=== PATIENT | male | born 1945 | race Caucasian/White ===

== ENCOUNTER → 2017-07-06 | Outpatient (CLI) | payer MEDICARE, OTHER ==
[~2017-07-06] MED LIST: ARTHRITIS PAIN650 M3 PO; AVAPRO300 M1 PO; CALCIUM 600 +1 EAC1 PO; COUMADIN5 MG; ELIGARD45 MG IM; HYDROCHLOROTHIA25 MG PO; LIPITOR40 MG PO; MULTI VITAMIN1 EACH PO; OSTEO BI-FLEX1 EAC3 PO; PROLIA60 MG/1 ML SUBQ; SOMNAPURE; VOLTAREN100 GM TOP; [UNRECOGNIZED DRUG - OTHER] IU; [UNRECOGNIZED DRUG - OTHER] MC
--- NOTE | ~2017-07-06 | EKG ---
PATIENT: AIDEE GIRON UNIT #: [id number] Ventricular Rate: 50 BPM Atrial Rate: 50 BPM P-R Interval: 212 ms QRS Duration: 96 ms Q-T Interval: 414 ms QTC Calculation(Bezet): 377 ms P [place]: 57 degrees Calculated R [place]: 4 degrees Calculated T [place]: 6 degrees Diagnosis Line: Sinus bradycardia with 1st degree A-V block Diagnosis Line: Otherwise normal ECG Diagnosis Line: No previous ECGs available Diagnosis Line: Confirmed by LUCA ALMENDAREZ MD ([id number]) on Diagnosis Line: 07/07/2017 9:44:09 AM INTERPRETING MD: TANESHA BIGGS
--- NOTE | ~2017-07-06 | US84 ---
[id number] [facility] [address] [place], [place] [address] [id number] O MR#: [id number] Acc #: [id number] NAME: AIDEE GIRON : 1945 SEX: M STUDY DATE/TIME: 07/06/2017 15:03 UNIT: [facility] ROOM: STUDY DESCRIPTION: US LE Veins Complete Lul Stdy Attending Physician: Carlyle Mejia M.D. Referring Physician: Carlyle Mejia M.D. Ordering Physician: Carlyle Mejia M.D. Primary Care Physician: Emerson Parks M.D. MEDICAL IMAGING REPORT This report is preliminary unless electronic signature is present EXAMINATION Bilateral lower extremity Doppler venous ultrasound. DATE 07/06/2017 HISTORY Previous history of bilateral extremity DVT in 2000. Preoperative evaluation of the left lower extremity surgery scheduled July 2017. Right greater than left bilateral lower extremity swelling. Hypertension. Hyperlipidemia. Prostate cancer in 2009. COMPARISON None. FINDINGS Study is limited secondary to patient's body habitus. Real-time, mccallum-scale, color Doppler and spectral Doppler imaging was performed of the bilateral lower extremity veins, from the groin through calf regions. Eccentric, echogenic, nonocclusive thrombus is demonstrated within the mid and distal right superficial femoral vein, most in keeping with the appearance of a chronic DVT. No acute right lower extremity deep venous thrombosis is seen. The left anterior tibial vein is not satisfactorily visualized. However, the left lower extremity veins demonstrate normal flow, compressibility and/or augmentation without evidence of deep venous thrombosis. Incidental note is made of a left popliteal fossa cyst measuring 5.1 x 1.8 x 3.1 cm. IMPRESSION 1. Findings consistent with chronic eccentric nonocclusive deep venous thrombosis in the mid to distal right superficial femoral vein. No acute deep venous thrombosis is seen within either lower extremity. 2. 5.1 x 1.8 x 3.1 severe left popliteal fossa cyst. Dictated by... Kat Schulz M.D. THIS IS AN ELECTRONICALLY VERIFIED REPORT Kat Schulz M.D. at 07/07/2017 9:40 AM STACIE/blanche TD: 07/06/2017 19:36 JOB #: [id number] MEDICAL IMAGING REPORT Page 1 of 1 COPY
--- NOTE | ~2017-07-06 | CR63 ---
[facility] A Service of [facility] & [facility] RADIOLOGY TEXT RESULTS PATIENT: AIDEE GIRON LOCATION: [facility] : 43 UNIT #: [id number] AGE: [address]: Carlyle Mejia MD SEX: M ORDER DR: [id number] [facility] [address] [place], [place] [address] [id number] O MR#: [id number] Acc #: [id number] NAME: AIDEE GIRON : 1945 SEX: M STUDY DATE/TIME: 07/06/2017 17:17 UNIT: [facility] ROOM: STUDY DESCRIPTION: CR Chest 2 View Attending Physician: Carlyle Mejia M.D. Referring Physician: Carlyle Mejia M.D. Ordering Physician: Carlyle Mejia M.D. Primary Care Physician: Emerson Parks M.D. MEDICAL IMAGING REPORT This report is preliminary unless electronic signature is present EXAM Two-view chest 07/06/2017 HISTORY 72-year-old male with shortness of air with activity for 3 days. Preoperative rest per clearance prior to left knee arthroplasty. COMPARISON: None. FINDINGS Two frontal views and one lateral view of the chest. Three total images. The lungs and pleural spaces are clear. No pneumothorax. Mild elevation of the right hemidiaphragm. Heart size and mediastinum normal. Pulmonary vasculature normal. IMPRESSION Mild elevation of the right hemidiaphragm. No acute cardiopulmonary findings. Dictated by... Jordan Arguelles M.D. THIS IS AN ELECTRONICALLY VERIFIED REPORT Jordan Arguelles M.D. at 07/07/2017 3:34 PM ARIEL/douglas TD: 07/07/2017 08:15 JOB #: [id number] MEDICAL IMAGING REPORT Page 1 of 1 COPY
--- NOTE | ~2017-07-06 | CO ---
Unit #: [id number] #: [id number] Patient: AIDEE GIRON [id number] [address] [address] [id number] O MR#: [id number] NAME: AIDEE GIRON ROOM: Age: 72 Sex: M Admission Date: 07/06/2017 : 1945 Attending Physician: Carlyle Mejia M.D. Primary Care Physician: Emerson Parks M.D. Consultation Date: 07/06/2017 CONSULTATION REPORT REASON FOR CONSULTATION Preoperative medical evaluation prior to left total knee arthroplasty scheduled by Dr. Mejia for 07/18/2017. HISTORY OF PRESENT ILLNESS The patient is a 72-year-old male, who presents to preprocedural screening for the reason as indicated above. He reports pain in his left knee at the time of the interview today, which is described as continuous, aching and sharp, relieved somewhat with Tylenol. He denies upper chest, upper back, arm, neck, jaw pain or pressure. Denies dyspnea on exertion. He is able to climb a flight of stairs, although he does so more slowly because of pain in the left knee. Denies PND or orthopnea. He states he was diagnosed with mild sleep apnea in the past, but was never placed on CPAP as he states it was not indicated at that time. He has lost weight since then and has no symptoms of EDMUNDO per his report. He denies lightheadedness, dizziness, presyncope, syncope and palpitations. He has never had a myocardial infarction, congestive heart failure, CVA, TIA, kidney disease, or diabetes. He has been evaluated by Dr. Mejia and scheduled for the above-referenced procedure. PAST MEDICAL HISTORY 1. Osteoarthritis. 2. Bradycardia. 3. Hyperlipidemia. 4. Hypertension. 5. Osteoporosis. 6. Obesity, BMI of 38. 7. History of DVT in the right lower extremity, established with Dr. Garzon as his city detective. 8. History of obstructive sleep apnea without CPAP use. 9. Risk factors for obstructive sleep apnea, specifically hypertension, obesity, male gender and age. 10. History of chest pain with preoperative cardiac clearance obtained by Dr. Nicholson. 11. Urinary frequency and urgency. 12. History of metastatic prostate cancer, established with Zeyad Garzon M.D. with note of preoperative clearance with the patient's medical record today. 13. Low back pain, history of skin cancer. 14. History of neuropathy, specifically numbness in toes. 15. Chronic anticoagulation secondary to history of DVT in the right lower extremity. 16. Chronic bilateral lower extremity edema with compression hose use in bilateral lower extremities. Unit #: [id number] #: [id number] Patient: AIDEE GIRON 16. Health maintenance. The patient states his last dental cleaning was in 03/2017 and had a filling replaced in 05/2017. He denies any abnormal issues with dentition and/or gums. PAST SURGICAL HISTORY 1. Tonsillectomy. 2. Cryosurgery for prostate CA. The patient denies a personal and family history of complications to anesthesia. ALLERGIES Denies latex allergy. Denies medication allergies. CURRENT MEDICATIONS Lipitor 40 mg p.o. daily, Avapro 300 mg p.o. daily, hydrochlorothiazide 25 mg p.o. daily, Tylenol Arthritis Pain Relief 1300 mg p.o. b.i.d., calcium 600+ vitamin D 1 p.o. daily, Voltaren topically q.i.d. to knees, Eligard unknown dose IM q.6 months for prostate cancer, Osteo Bi-Flex caplet one p.o. b.i.d., multivitamin one p.o. daily, Monovisc 88 mg q.6 months in each knee, Prolia 60 mg subcu q.6 months, Somnapure one tab p.o. at bedtime, Coumadin 7.5 mg daily except 10 mg on Tuesday, polyhexamethylene biguanide 1 mL b.i.d. to toenails. SOCIAL HISTORY Denies tobacco use, occasionally consumes alcohol and denies illicit drug use. FAMILY HISTORY Per review of Dr. Mejia's office note, coronary artery disease with myocardial infarction in both parents. REVIEW OF SYSTEMS A 10-point review of systems is conducted and otherwise negative except as indicated under history of present illness and past medical history above. PHYSICAL EXAMINATION GENERAL: A 72-year-old, male, awake, alert, in no acute distress. VITAL SIGNS: Temperature 97.8, heart rate 59, respiratory rate 18, blood pressure 149/80, oxygen saturation 100% on room air. HEENT: Atraumatic and normocephalic. Sclerae anicteric. No discharge from eyes, ears, or nares. LYMPH: No preauricular, postauricular, tonsillar, submental, anterior, posterior cervical adenopathy. ENDOCRINE: No thyromegaly, thyroid nodules, or tenderness. RESPIRATORY: Clear to auscultation in all bryan bilaterally without wheezes, rhonchi, or rales. CARDIOVASCULAR: S1, S2. Regular rate and rhythm without murmur or rub. GI: Bowel sounds are positive x4. Soft, nontender, nondistended. EXTREMITIES: 2 to 3+ bilateral lower extremity edema without clubbing. Bilateral knee-high compression stockings from home in place. MUSCULOSKELETAL: Strength 5/5 in all extremities bilaterally to flexion-extension, ambulatory. NEUROLOGIC: Alert and oriented x3. Speech clear. Follows directions during examination. DIAGNOSTIC STUDIES LABORATORY RESULTS: WBC 7.4, hemoglobin 12.9, hematocrit 38.8, platelets Unit #: [id number] #: [id number] Patient: AIDEE GIRON VERONICA 202,000. Sodium 139, potassium 4.4, chloride 104, CO2 of 26, glucose 103, BUN 22, creatinine 1.1, calcium 9.9, AST 21, ALT 23, alkaline phosphatase 54, bilirubin total 1.2, total protein 6.8, albumin 4.3, PT 30.3, INR 2.8. Urinalysis, negative with neither microscopic nor culture indicated. Blood type A positive, antibody screen negative. MRSA nasal swab report is pending at this time. IMAGING STUDIES: Two-view chest x-ray report pending at this time. CARDIOLOGY: Nuclear perfusion study (Cardiolite), date of study 03/28/2017, final impression; normal perfusion study. Ejection fraction 64%. Inferior diaphragmatic attenuation artifact. Signed by Yousif Baez M.D. Stress EKG, Lexiscan protocol, date of study 03/28/2017, impression; negative pharmacologic stress EKG for inducible ischemia, normal blood pressure response to Lexiscan. Images reported separately and as dictated above. Bilateral lower extremity duplex venous Doppler pending at this time. IMPRESSION The patient is a 72-year-old male, who presents to preprocedural screening for, 1. Preoperative medical evaluation prior to left total knee arthroplasty as scheduled by Dr. Mejia. The patient's Luna revised cardiac risk index based on information available today is 0.4% to 0.5% and represents the patient's rate of fatal or nonfatal myocardial infarction, cardiopulmonary arrest, arrhythmia and/or pulmonary edema. This has been discussed in detail with the patient and he wishes to proceed with surgery as scheduled at this time. Again, the patient has been given preoperative cardiac clearance. 2. History of bradycardia, stable. Consider placing the patient on low-level telemetry on the orthopedic unit postoperatively. 3. Hyperlipidemia. 4. Hypertension. Blood pressure is mildly elevated, but stable today. We will monitor blood pressure trends perioperatively and adjust medications accordingly. 5. Osteoarthritis. 6. Osteoporosis. 7. Obesity, BMI of 38. Weight loss to suggest a BMI is recommended. 8. History of deep venous thrombosis of the right lower extremity. The patient is on chronic anticoagulation with Coumadin and his INR is therapeutic today at 2.8. His goal INR is 2.0 to 3.0. The patient has been evaluated by his city detective who has communicated with Dr. Parks, his primary care physician. The patient tells me Dr. Parks will communicate with Dr. Mejia for coordination of perioperative anticoagulation. 9. History of obstructive sleep apnea. The patient states he was never prescribed CPAP. We will monitor the patient perioperatively and at obstructive sleep apnea protocol if indicated. 10. History of chest pain. The patient is asymptomatic at this time. He had a normal Lexiscan Cardiolite stress test in 03/2017. He has preoperative cardiac clearance note on the chart today. 11. Urinary frequency and urgency with history of prostate cancer. We will monitor for postoperative urinary retention and consult Urology if indicated. 12. History of polyps. 13. Chronic low back pain. 14. History of skin cancer. Unit #: [id number] #: [id number] Patient: AIDEE GRION 15. History of toe numbness/neuropathy. 16. Chronic anticoagulation with therapeutic INR today on Coumadin. 17. Chronic bilateral lower extremity edema. The patient's calves are soft and nontender and he has no specific new complaints today. Bilateral lower extremity duplex venous Doppler report is pending at this time. Thank you for allowing us to participate in the care of this patient. We will gladly follow him for postop medical management pending order of Dr. Mejia. Dictated by... Yvette Garcia A.P.R.N. for Jose Juan Barrios/paul TD: 07/07/2017 04:35 JOB #: [id number] CONSULTATION REPORT Page 1 of 1 X Yvette Garcia PRODUCTION ENGINEER [employer]ACK X CONSULTATION REPORT
[2017-07-06 10:22] LABS: HEMATOCRIT 38.8 % (38.0-50.0); HEMOGLOBIN 12.9 gm/dL (13.0-16.0); MEAN CELL VOLUME 85.9 FL (83-96); MEAN CORPUSCULAR HEMOGLOBIN 28.6 PG (28-34); MEAN CORPUSCULAR HGB CONC 33.3 g/dL (30-36); MEAN PLATELET VOLUME 8.3 FL (6.5-11.5); RED BLOOD COUNT 4.52 X10e (3.90-5.60); RED CELL DISTRIBUTION WIDTH 13.7 % (11.0-15.5); WHITE BLOOD COUNT 7.4 X10e3 (4.0-10.5)
[2017-07-06 10:38] LABS: INR 2.8; PROTHROMBIN TIME (PATIENT) 30.3 SECONDS (10.0-11.7)
[2017-07-06 10:53] LABS: ALBUMIN SERUM 4.3 g/dL (3.5-5.0); BILIRUBIN,TOTAL 1.2 mg/dL (0.2-2.0); CALCIUM SERUM 9.9 mg/dL (8.4-10.2); CREATININE SERUM 1.1 mg/dL (0.6-1.4); GLOM FILT RATE Estimated 66.3 mL/min (>60); POTASSIUM 4.4 mmol/L (3.5-5.1); PROTEIN TOTAL SERUM 6.8 g/dL (6.0-8.3)
[2017-07-06 11:48] LABS: URINE APPEARANCE CLEAR; URINE BILIRUBIN NEG (NEG); URINE BLOOD NEG (NEG); URINE COLOR YELLOW; URINE GLUCOSE NEG (NEG); URINE KETONE NEG (NEG); URINE LEUKOCYTE ESTERASE NEG (NEG); URINE NITRATE NEG (NEG); URINE PROTEIN NEG (NEG); URINE SPECIFIC GRAVITY 1.011 (1.003-1.035); URINE UROBILINOGEN 0.2 MG/DL (NEG)
[2017-07-06 11:51] LABS: CULTURE INDICATED? NO; URINE SOURCE CLEAN CATCH
== END | disposition home or self-care (01) ==
LOC: CAMB 09:23
PROVIDERS: Orthopaedic Surgery
DX: Z01.818 Encounter for other preprocedural examination (principal); M17.12 Unilateral primary osteoarthritis, left knee; M71.22 Synovial cyst of popliteal space [Baker], left knee; R00.1 Bradycardia, unspecified; E78.5 Hyperlipidemia, unspecified; I10 Essential (primary) hypertension; G89.29 Other chronic pain; M54.5 Low back pain; R60.0 Localized edema; E66.9 Obesity, unspecified; Z68.38 Body mass index [BMI] 38.0-38.9, adult; Z86.718 Personal history of other venous thrombosis and embolism; Z79.01 Long term (current) use of anticoagulants
CPT/HCPCS: 36415; 71020; 80053; 81003; 85027; 85610; 86850; 86900; 86901; 87070; 93005; 93970